=== PATIENT | female | born 1960 | race Caucasian/White ===

== ENCOUNTER 2021-09-12 10:48 | Emergency (ER) | payer SELFPAY ==
[~2021-09-12] VITALS: Ht 162.6 cm; Wt 81.2 kg
--- NOTE | 2021-09-12 11:00 | NUR ---
Triaged pt and placed in tent 2. Pt coming from home ambulatory with steady gait. Pt is A&Ox4. Skin intact. Pt c/o feeling weak and lack of appetite for several months. Pt has hx of Cancer and HTN, NKA. VSS. No nausea and no vomiting. Denies chest pain and no sob.
--- NOTE | 2021-09-12 11:06 | NUR ---
DR. REAGAN IN TENT EXAMINING PT.
[2021-09-12 11:16] VITALS: BP_SYST 120
--- NOTE | 2021-09-12 11:55 | NUR ---
Covid and flu swab sent to lab.
[2021-09-12 12:40] VITALS: BP_SYST 128
--- NOTE | 2021-09-12 12:41 | NUR ---
Patient given written and verbal discharge instructions and verbalizes understanding. ER MD discussed with patient the results and treatment provided. Patient in stable condition. ID arm band removed. Patient educated on pain management and to follow up with PMD. Pain Scale 0/10. Opportunity for questions provided and answered. Medication side effect fact sheet provided.
== END 2021-09-12 12:40 | disposition home or self-care (01) ==
LOC: SED 10:48
DX: U07.1 COVID-19 (principal)
CPT/HCPCS: 36415; 71045; 99284